=== PATIENT | female | born 1970 | race Caucasian/White ===

== ENCOUNTER 2019-12-23 07:26 | Outpatient (CLI) | payer BC, SELFPAY ==
--- NOTE | 2019-12-23 07:32 | MM_ITS ---
WS: [id number] Bilateral screening digital mammogram, 12/23/2019 Clinical Data: SCREENING Comparison: 09/16/2011 Findings: The breast parenchymal pattern shows fibroglandular tissue No spiculated masses or clustered calcific ations are seen. There are no secondary signs of carcinoma. MM/[id number] Impression: 1. Negative bilateral mammogram unchanged. 2. Recommend annual screening mammograms. BIRADS: 1-Negative FOLLOW UP: 1 Year Follow-up The CAD purchase order checker was used.
== END 2019-12-23 07:27 | disposition home or self-care (01) ==
LOC: RADSHAW 07:26
PROVIDERS: PCP Nurse Practitioner; Visit Provider Nurse Practitioner
DX: Z12.31 Encounter for screening mammogram for malignant neoplasm of breast (principal)
CPT/HCPCS: 77067

== ENCOUNTER 2022-11-06 07:02 | Outpatient (CLI) | payer BC, SELFPAY ==
--- NOTE | 2022-11-06 07:19 | USCV_ITS ---
Sunshine Leon Age: 52 Gender: F : 1970 Exam Date: 11/06/2022 07:28 Ordering Phys: Elian Fox MD Technologist: Jaci Douglas Exam Location: [facility] [place] Indication: New onset Afib BP: 140 / 84 HR: 52 Rhythm: Sinus Technical Quality: Adequate MEASUREMENTS (Male / Female) Normal Values 2D ECHO LV Diastolic Diameter PLAX 4.0 cm 4.2 - 5.9 / 3.9 - 5.3 cm LV Systolic Diameter PLAX 2.9 cm LV Chamber Size 2.8 cm IVS Diastolic Thickness 0.8 cm 0.6 - 1.0 / 0.6 - 0.9 cm IVS Systolic Thickness 1.0 cm LVPW Diastolic Thickness 0.9 cm 0.6 - 1.0 / 0.6 - 0.9 cm LVPW Systolic Thickness 1.1 cm RV Chamber Size 2.1 cm LVOT Diameter 2.0 cm LV Ejection Fraction 2D Teich 53.6 % LV Ejection Fraction MOD 2C 31.8 % LV Ejection Fraction 2C AL 35.8 % LA Diameter 3.2 cm LA Width 3.7 cm LA Height 2.9 cm RA Width 3.6 cm RA Height 3.5 cm Aorta at Sinotubular Diameter 2.8 cm IVC Diameter 1.4 cm M-MODE Aortic Annulus Diameter 3.3 cm LA Ao Ratio MM 1.1 MV E Point Septal Separation 0.3 cm DOPPLER AV Peak Velocity 147.7 cm/s LVOT Peak Velocity 92.3 cm/s AV Area Cont Eq vti 2.0 cm squared AV Area Cont Eq pk 2.1 cm squared MV Peak Velocity 95.0 cm/s MV Area PHT 5.0 cm squared Mitral E to A Ratio 1.6 MV E' Velocity 54.0 cm/s Mitral E to MV E' Ratio 7.3 Mitral E to LV E' Lateral Ratio 5.6 Mitral E to LV E' Septal Ratio 10.4 TR Peak Velocity 252.4 cm/s TR Peak Gradient 25.5 mmHg TR Mean Velocity 204.8 cm/s TR Mean Gradient 17.8 mmHg TR Velocity Time Integral 99.2 cm TV Peak E Velocity 65.0 cm/s Right Atrial Pressure 3.0 mmHg Pulmonary Artery Systolic Pressu 28.5 mmHg RV Acceleration Time 0.2 s RV Ejection Time 0.4 s RV AcT/ET 0.5 FINDINGS Left Ventricle Left ventricle is normal in size. LV systolic function is normal with EF of 50 to 55%. No regional wall motion abnormalities are seen. Right Ventricle Normal in size and function Right Atrium Normal in size Left Atrium Normal in size Mitral Valve Structurally normal mitral valve. Trace mitral regurgitation. Aortic Valve Structurally normal aortic valve. No significant stenosis or regurgitation. Tricuspid Valve Mild tricuspid regurgitation. Pulmonary artery systolic pressure is normal. Pulmonic Valve Not well visualized Pericardium Normal Aorta Normal in size IVC Appears to be normal CONCLUSIONS LV systolic function is normal with EF of 50 to 55%. Trace mitral regurgitation Mild tricuspid regurgitation No comparison studies are available Dick Altman MD (Electronically Signed) Final Date: 15 November 2022 12:54 S
== END 2022-11-06 07:03 | disposition home or self-care (01) ==
PROVIDERS: PCP Nurse Practitioner; Visit Provider Family Medicine
DX: I48.91 Unspecified atrial fibrillation (principal); I08.1 Rheumatic disorders of both mitral and tricuspid valves
CPT/HCPCS: 93306